=== PATIENT | female | born 1955 | race Caucasian/White ===

== ENCOUNTER → 2017-01-17 | Outpatient (CLI) | payer OTHER | LOC: BMCIMAGING 13:47 | PROVIDERS: ATTEND Internal Medicine Rheumatology | DX: Z13.820 Encounter for screening for osteoporosis (principal) ==

== ENCOUNTER → 2017-06-12 | Outpatient (CLI) | payer OTHER | LOC: BMCIMAGING 14:32 | PROVIDERS: ATTEND Internal Medicine Rheumatology | DX: M25.561 Pain in right knee (principal); M25.562 Pain in left knee; M17.0 Bilateral primary osteoarthritis of knee ==